=== PATIENT | female | born 1975 | race Caucasian/White ===

== ENCOUNTER 2020-10-19 08:20 | Outpatient (CLI) | payer OTHER | END 2020-10-19 08:21 | disposition home or self-care (01) | LOC: RAD 08:20 | PROVIDERS: ATTEND Surgery | DX: K95.09 Other complications of gastric band procedure (principal); K31.89 Other diseases of stomach and duodenum; Z98.84 Bariatric surgery status | CPT/HCPCS: 74246 ==

== ENCOUNTER 2020-11-07 14:32 | Outpatient (CLI) | payer OTHER | END 2020-11-07 14:33 | disposition home or self-care (01) | LOC: DTY/OP 14:32 | PROVIDERS: ATTEND Surgery | DX: E03.9 Hypothyroidism, unspecified (principal); I10 Essential (primary) hypertension | CPT/HCPCS: 97802 ==

== ENCOUNTER 2021-01-30 10:25 | Outpatient (CLI) | payer OTHER | END 2021-01-30 10:26 | disposition home or self-care (01) | LOC: LABBT 10:25 | PROVIDERS: ATTEND Surgery | DX: Z01.812 Encounter for preprocedural laboratory examination (principal); E66.01 Morbid (severe) obesity due to excess calories; K44.9 Diaphragmatic hernia without obstruction or gangrene; K95.09 Other complications of gastric band procedure; Z20.822 Contact with and (suspected) exposure to COVID-19 | CPT/HCPCS: U0003; U0005 ==

== ENCOUNTER 2022-11-17 07:15 | Emergency (ER) | payer BC ==
[2022-11-17] MEDS ORDERED: Morphine 4 MG/ML VIAL ONE (09:12)
[2022-11-17] MEDS ORDERED: Orphenadrine Citrate 60 MG/2 ML VIAL ONE (09:13)
== END 2022-11-17 10:31 | disposition home or self-care (01) ==
LOC: ERS 07:15
DX: M54.50 Low back pain, unspecified (principal); E03.9 Hypothyroidism, unspecified; I10 Essential (primary) hypertension
CPT/HCPCS: 96372; 99283; J2270; J2360

== ENCOUNTER 2023-05-05 13:17 | Outpatient (CLI) | payer BC | END 2023-05-05 13:18 | disposition home or self-care (01) | LOC: BICMRI 13:17 | PROVIDERS: ATTEND Orthopaedic Surgery | DX: M23.92 Unspecified internal derangement of left knee (principal); S83.242A Other tear of medial meniscus, current injury, left knee, initial encounter; M22.42 Chondromalacia patellae, left knee; M25.462 Effusion, left knee; M71.22 Synovial cyst of popliteal space [Baker], left knee ==

== ENCOUNTER 2023-07-01 07:35 | Day surgery (SDC) | payer BC ==
[2023-06-30 10:38] VITALS: BMI 41.9
[2023-07-01 08:33] LABS: #Basophils 0.1 thou/uL (0.0-0.2); #Eosinphils 0.5 thou/uL (0.0-0.7); #Monocytes 0.5 thou/uL (0.11-0.59); #Neutrophils 3.8 thou/uL (1.40-6.50); %Basophils 0.9 % (0.0-1.0); %Eosinophils 7.2 % (0.0-10.0); %Lymphocytes 27.6 % (21.0-51.0); %Monocytes 7.8 % (0.0-10.0); %Neutrophils 56.4 % (42.0-75.0); Hematocrit 37.8 % (36.0-47.0); Mean Corpuscular HGB CONC 34.4 g/dL (32.0-36.0); Mean Corpuscular Hemoglobin 30.7 pg (27.0-31.0); Mean Corpuscular Volume 89.2 fl (78.0-98.0); Mean Platelet Volume 10.4 fL (7.4-10.4); Platelet Count 222 10x3/uL (130-400); RBC Distribution Width 11.6 % (11.5-14.5); Red Blood Cell (RBC) Count 4.24 mill/uL (4.20-5.40); White Blood Cell (WBC) Count 6.7 10x3/uL (4.8-10.8)
[2023-07-01] MEDS ORDERED: PROPOFOL 20 ML ONE ×2 (09:26→09:28)
[2023-07-01] MEDS ORDERED: Sodium Chloride 0.9% 100 ML ONE (10:42)
[2023-07-01] MEDS ORDERED: CEFAZOLIN 2 GM VIAL ONE (10:42)
[2023-07-01] MEDS ORDERED: PROPOFOL 200 MG/20 ML VIAL ONE (10:54)
[2023-07-01] MEDS ORDERED: Rocuronium Bromide 10 MG/ML (10ML VIAL) ONE (10:54)
[2023-07-01] MEDS ORDERED: Ondansetron PF 4 MG/2 ML Vial ONE ×3 (10:54→14:01)
[2023-07-01] MEDS ORDERED: Metoclopramide HCl 10 MG (2 mL) VIAL ONE ×2 (10:54→11:35)
[2023-07-01] MEDS ORDERED: Ketorolac Tromethamine 30 MG (1 mL) VIAL ONE ×3 (10:54→12:00)
[2023-07-01] MEDS ORDERED: Dexamethasone 20 MG/5 ML VIAL ONE ×2 (10:54→11:35)
[2023-07-01] MEDS ORDERED: fentaNYL PF 100 MCG/2 ML SYRINGE ONE (11:22)
[2023-07-01] MEDS ORDERED: SUGAMMADEX SODIUM 200 MG/2 ML VIAL ONE (11:53)
== END 2023-07-01 14:22 | disposition home or self-care (01) ==
LOC: SDC 07:35
PROVIDERS: ATTEND Orthopaedic Surgery
PROC: 0SQD4ZZ Repair Left Knee Joint, Percutaneous Endoscopic Approach (ICD-10-PCS; principal; 2023-07-01)
DX: S83.242A Other tear of medial meniscus, current injury, left knee, initial encounter (principal); M23.92 Unspecified internal derangement of left knee; E03.9 Hypothyroidism, unspecified; E04.1 Nontoxic single thyroid nodule; G43.909 Migraine, unspecified, not intractable, without status migrainosus; F41.9 Anxiety disorder, unspecified; F32.A Depression, unspecified; Z98.890 Other specified postprocedural states; Z90.49 Acquired absence of other specified parts of digestive tract; Z79.890 Hormone replacement therapy; Z88.5 Allergy status to narcotic agent; Z79.899 Other long term (current) drug therapy; X58.XXXA Exposure to other specified factors, initial encounter
CPT/HCPCS: 85025; J1100; J1885; J2405; J2704; J2765; J3490